=== PATIENT | female | born 1960 | race Caucasian/White ===

== ENCOUNTER → 2021-03-31 08:01 | Outpatient (CLI) | payer BC, SELFPAY ==
--- NOTE | 2021-03-31 08:10 | CT_ITS ---
STUDY: CT MAXILLOFACIAL SINUSES REASON FOR EXAM: Female, 60 years old. SINUSITIS RADIATION DOSAGE (If Supplied By Facility): CTDIvol = ( 33.06 ) mGy, DLP = ( 776.00 ) mGycm TECHNIQUE: The patient was scanned in a multi detector CT scanner. High resolution axial imaging was performed without the administration of intravenous contrast material. Sagittal and coronal images were reconstructed. Individualized dose optimization techniques were used for this CT. COMPARISON: None. FINDINGS: FRONTAL SINUSES: Mucosal thickening of the right frontal sinus. ETHMOIDAL SINUSES: Partial opacification of the ethmoid sinuses bilaterally. MAXILLARY SINUSES: Minimal mucosal thickening along the inferior aspect of the right maxillary sinus. SPHENOIDAL SINUSES: Opacification of the left sphenoid sinus. Mucosal thickening along the anterior aspect of the right sphenoid sinus. There is patency of the bilateral maxillary infundibuli with normal uncinate processes, ethmoid bullae, and hiatus semilunaris. Normal bilateral middle turbinates. Normal bilateral inferior turbinates. Normal midline nasal septum. There is patency of the bilateral nasal airways. The visualized osseous structures are normal. The visualized bilateral orbital contents are normal. CT/Sinus/Facial Bone IMPRESSION: Pansinusitis. Electronically Signed: Kevyn Lopez MD at 8:51 EST , Service support ,
== END ==
PROVIDERS: PCP Family Medicine; Referring Provider Otolaryngology; Visit Provider Otolaryngology
DX: J32.8 Other chronic sinusitis (principal)
CPT/HCPCS: 70486

== ENCOUNTER → 2021-04-16 10:35 | Outpatient (CLI) | payer BC, SELFPAY ==
[2021-04-16 12:04] LABS: Absolute Lymphocyte Count 1.37 X10^3/uL (0.83-4.51); Absolute Neutrophil Count 3.4 X10^3/uL (2.0-7.7); Basophil# 0.05 X10^3/uL; Basophil% 0.9 % (0-1); Eosinophil# 0.14 X10^3/uL; Eosinophils% 2.5 % (0-5); Hematocrit 43.2 % (37-47); Hemoglobin 13.7 g/dL (12.0-15.0); Lymphocyte # 1.37 X10^3/ul (0.83-4.51); Mean Corp Hgb Conc 31.7 g/dL (32-36); Mean Corpuscular Hgb 27.2 pg (27.0-32.0); Mean Corpuscular Volume 85.9 fL (81-99); Mean Platelet Vol. 10.9 fl (6.2-12.0); Monocyte% 12.3 % (0-10); NRBC Flagged by Analyzer 0 % (0-5); Neutrophil # 3.44 X10^3/uL (2.7-7.7); Neutrophil % 60.1 % (47-70); Platelet Count 306 K/mm3 (150-450); RBC Distribution Width CV 13.6 % (11.6-14.6); RBC Distribution Width SD 42.5 fl (35.1-43.9); Red Blood Count 5.03 M/mm3 (4.2-5.4); White Blood Count 5.7 K/mm3 (4.4-11.0)
[2021-04-16 12:44] LABS: ALB/GLOB Ratio 0.9 RATIO (0.9-2.4); AST(SGOT) 27 U/L (15-37); Alanine Aminotransfer ALT/SGPT 30 U/L (13-56); Albumin, Serum 3.5 g/dL (3.2-5.0); Alkaline Phosphatase 104 U/L (45-117); Anion Gap 7 (5-15); BUN 18 mg/dL (7-18); BUN/Creat Ratio 17.8 RATIO (10-20); Calcium,Total 9.3 mg/dL (8.5-10.1); Chloride 106 mmol/L (98-107); Creatinine, Serum 1.01 mg/dL (0.55-1.02); EST Glomerular Filtration Rate 59 mL/min (>60); Est Glom Filt Rate - Afr Amer 71 mL/min (>60); Globulin 3.7 g/dL (2.2-4.2); Glucose 68 mg/dL (74-106); Potassium 4.5 mmol/L (3.5-5.1); Protein, Total 7.2 g/dL (6.4-8.2); Sodium Level 141 mmol/L (136-145)
== END ==
PROVIDERS: PCP Family Medicine; Referring Provider Family Medicine; Visit Provider Family Medicine
DX: Z01.818 Encounter for other preprocedural examination (principal)
CPT/HCPCS: 36415; 80053; 85025

== ENCOUNTER 2021-04-23 05:52 | Day surgery (SDC) | payer BC, SELFPAY ==
[2021-04-23] VITALS (8 sets, daily range): BP systolic 106–128; BP diastolic 60–78; PULSE 65–80; RESP 12–16; TEMP 36.1–36.6; O2SAT 94–99; BMI 25.3
[2021-04-23 06:36] LABS: Prothrombin Time Fingerstick 12.3 SEC (11.9-14.4)
[2021-04-23] MEDS: Lactated Ringers 1,000 ML 15 ML IV (06:50)
[2021-04-23] MEDS: Cefazolin 2 GM in 0.9% Normal Saline 100 ML IV (07:27)
--- NOTE | 2021-04-23 07:30 | BON_PTH ---
PATIENT: CHRISTY JAIN LOC: [facility] [place] U#:[id number] AGE/SX: 60/F ROOM: RE04/23/[address]: Dr. Virgilio Villarreal DPM : 1960 BED: DIS: 04/23/2021 SPEC #: [id number] RECD: 04/23/21 12:27 STATUS: FRANCOIS YUE #: [id number] ROB: 04/23/21 07:[address]: Virgilio Villarreal DEPT: SURGICAL PATHOLOGY RECD BY: Alicia Guerrero ENTERED: 04/23/21 12:37 SP TYPE: Bone OTHR DR: Dr. Selena Rosales, DO Tissues: Toe, NOS Procedures: Decalcification bone/plaque Surgery Specimen Level IV HEADER OPERATION: First metatarsal cuneiform joint fusion lapidus bunionectomy PRE-OP DIAGNOSIS: Left hallux valgus bunion; craig second left toe TISSUE SUBMITTED: Craig second left toe MICROSCOPIC DIAGNOSIS Hammertoe deformity of left toe, bunionectomy: Fragments of osseocartilaginous tissue consistent with bony deformity. AM:arik 04/28/2021 MICROSCOPIC DESCRIPTION Slides are reviewed. GROSS DESCRIPTION Received in fixative is one container labeled with the patient's name and designated maxwelle second left toe. The specimen consists of two pieces of bone measuring 1.2 x 0.5 x 0.5 cm and 0.7 x 0.5 x 0.4 cm. The entire specimen is submitted in one cassette after decalcification. / ALEIDA:arik 04/23/21 TC:5 CPT: 53957, 02484
--- NOTE | 2021-04-23 07:30 | RAD_ITS ---
STUDY: X-RAY - LEFT FOOT CLINICAL: Intraoperative fluoroscopy for arthroplasty of the second digit, bunionectomy and first metatarsal cuneiform fusion. TECHNIQUE: 2 intraoperative images of the foot. COMPARISON: None. FINDINGS: There is resection arthroplasty of the second proximal interphalangeal joint with an orthopedic pin transfixing the phalanges of the second digit. 194 seconds of fluoroscopy time was used. Electronically Signed: Trent Delgado MD at 13:33 EST Tel , Service support , RAD/Foot min 3 Views
[2021-04-23] MEDS: Bupivacaine Mpf 0.5% 30 ML VIAL (07:42)
--- NOTE | 2021-04-23 10:06 | RAD_ITS ---
STUDY: X-RAY - LEFT FOOT CLINICAL: Postoperative evaluation of left second digit arthroplasty. TECHNIQUE: 3 view(s) of the foot. COMPARISON: Intraoperative images obtained earlier the same day and radiographs of the left ankle 03/23/2015. FINDINGS: There is a plantar calcaneal enthesophyte. There is arthrodesis of the first tarsometatarsal articulation with orthopedic hardware. Normal metatarsi. There is moderate joint space narrowing of the metatarsophalangeal joint of the great toe. Normal tibial and fibular sesamoid bones. Normal interphalangeal joint of the great toe. Normal phalanges of the great toe. Normal second through fifth metatarsophalangeal joints. There is resection arthroplasty of the second proximal interphalangeal joint with an orthopedic pin transfixing the second digit phalanges. There is minimal postoperative soft tissue gas. RAD/Foot min 3 Views IMPRESSION: Uncomplicated resection arthroplasty of the second proximal interphalangeal joint. Arthrosis of the first metatarsophalangeal joint. Arthrodesis of the first tarsometatarsal articulation. Plantar calcaneal enthesophyte. Electronically Signed: Trent Delgado MD at 12:13 EST Tel , Service support ,
--- NOTE | 2021-04-23 10:09 | DCINST_ITS ---
Discharge Instructions Diet Discharge Diet: Light diet - advance as tolerated Activity Discharge Activity: Use Walker and Use Crutches Weight Bearing Status: No weight bearing (No weightbearing on left foot) Keep extremity elevated above heart level: Left Leg Additional Activity Instructions:: Keep left foot elevated with pillows for at least 50 minutes of every hour Dressing / Incision Call your doctor if your incision/area has: Continuous Slow Oozing, Increased Pain/ Swelling, Increased Redness and Foul Smelling Discharge Call your doctor if you observe: Fever of 101 or Higher, Shortness of breath, Chest pain, Increased palpitations (irregular heartbeat), Calf discomfort and Uncontrolled pain Change Dressing in: do not change dressing Remove Dressing in: leave in place till F/U Cleanse incision/area with: Do not get Incision Wet and Keep Dressing Clean & Dry Follow Up Care Please Follow Up With: Virgilio Villarreal DPM When: Follow up with Dr. Villarreal at the [facility] next week, sooner if needed. Office number: [phone] Dr. Villarreal's pager/cell: [phone] Test Results: Test results from this visit will be discussed in further detail at your follow-up appointment, if applicable. Discharge Plan Admission Attending Provider: Virgilio Villarreal Primary Care Provider: Selena Rosales Discharge Orders/Prescriptions Prescriptions: New oxycodone-acetaminophen [Percocet] 5-325 mg tablet 1 - 2 tab PO Q6H PRN (Reason: pain) 4 Days Qty: 24 RF: 0 No Action warfarin 2 mg Tablet 2 mg PO SUMOWEFR RF: 0 warfarin 4 mg Tablet 4 mg PO TUTHSA RF: 0 enoxaparin [Lovenox] 80 mg/0.8 mL Syringe 70 mg SUBCUT BID RF: 0 Referrals / Follow Up: Selena Rosales DO [Primary Care Provider] - Disposition Disposition (needs filled in before D/C Order can be placed): Home, Self Care
--- NOTE | 2021-04-23 10:11 | OP.PCM_ITS ---
Report of Operation Date of Procedure: 04/23/21 Pre-Operative Diagnosis: Hallux Valgus Bunion, left foot Hammer toe 2nd toe left foot Post-Operative Diagnosis: Same Surgery/Procedure Performed:: 1st tarsometatarsal lapidus arthrodesis/fusion bunionectomy left foot Arthroplasty left 2nd toe, left foot Surgeon: Virgilio Villarreal licensed prosthetist/orthotist: Dr. Escalante Type of Anesthesia: General and Local Specimen's removed: Bone from left 2nd toe sent to pathology Estimated Blood Loss (mL): 10mL Description of Procedure: Indications: This is a 60 year old female with history of chronic symptomatic left hallux valgus bunion pain, as well as 2nd toe pain due to significant hammer toe deformity. She elected to under go surgical intervention due to condition, symptoms, and problems with shoegear and activity. This procedure is - 1st metatarsal cuneiform lapidus arthrodesis bunionectomy, as well as correction of 2nd digit hammer toe. This was discussed with her in great detail, reviewed the procedures, as well as the rationale of the procedures with her in great detail. We discussed and reviewed the possible benefits vs risks/potential complications. The estimated healing/recovery time and protocol were reviewed with her in detail. Reviewed the goals and the expectations. She expressed understanding and agreement and elected to proceed forward with surgical intervention as noted above. The consent forms were reviewed and they were freely signed. All questions were answered. No guarantees were given or implied. She was cleared from medical standpoint to proceed with surgery. Operative Procedure: The patient was brought back into the operating room and was placed on the operating table in the supine position. Patient was carefully secured to the operating room table with a safety belt around her waist. A time out was performed and the patient was properly identified and the surgical plan was confirmed. The patient received IV antibiotic prophylaxis - 2g of Ancef. The patient received anesthesia per the anesthesiologist. After the skin was cleansed with 70% Isopropyl alcohol 20mL of 0.5% Bupivacaine plain was given as a 1st and 2nd ray block. A well padded pneumatic tourniquet was applied around the patient's left ankle. The left foot was scrubbed, prepped, and draped in the usual aseptic fashion. Attention was directed to the left foot, there was noted to be significant hallux valgus bunion w/ instability of the 1st ray, with 1st toe deviated into 2nd toe, and significant contracture of 2nd toe. The left foot was elevated for 3 minutes and the ankle pneumatic tourniquet was inflated to 250mmHg. A linear longitudinal skin incision was medially along the medial 1st metatarsal cuneiform joint as well as overlying the 1st metatarsal phalangeal joint. This was done using a 15 blade. Careful dissection was completed down to the capsule of the 1st metatarsal cuneiform joint, and it was incised using a 15 blade and partially reflected exposing the joint surfaces. All cartilage from the 1st metatarsal cuneiform joint surfaces (posterior aspect of the base of the 1st metatarsal and the anterior aspect of the medial cuneiform) were debrided away and was removed down to bleeding bone. This was done with a curette as well as a powered rasp and saw, being sure not to cause osteonecrosis. The site was flushed out with copious amounts of normal saline solution. The surfaces were fenestrated using a powered drill to aid fusion. The 1st metatarsal was reduced into normal position. The site was fixated use rigid open reduction internal fixation, using 1 Arthrex plantar plate, using a total of 4 locking screws and 1 nonlocking compression screw across the fusion site. An additional 2 x 3.5mm FT Arthrex threaded screw was placed across the fusion site for extra stability to aid fusion, and 1 x 3.5mm FT Arthrex screw from the 1st and 2nd cuneiforms for intercuneiform instability which was noted to be present when stressing site under intra operative fluoroscopy. Internal fixation was done using rigid open reduction internal fixation technique. There was very good compression and bone to bone contract with the prepped fusion site, in good alignment. The fusion site was rigid and very stable. This was checked and confirmed with intraoperative fluoroscopy. There was noted to be significant contracture of the lateral 1st metatarsal phalangeal joint as well as the adductor hallucis tendon which was preventing proper complete reduction of the deformity. Therefore a small skin incision was overlying the dorsal lateral 1st metatarsal phalangeal joint. Dissection was completed down to the lateral capsule and adductor hallucis tendon which were released using a 15 blade. There was was now normal range of motion to the 1st metatarsal phalangeal joint. There was smooth normal gliding range of motion of the 1st metatarsal phalangeal joint at this time with normal alignment. The joint was in good alignment. The surgical site was flushed out with copious amounts of normal saline solution. Tissues were healthy and viable at this time. The subcutaneous tissue layers were reapproximated using 3-0 Vicryl and the skin was reapproximated using 4-0 Monocryl. Cavilon was painted to the edges of the sutured skin incision and steristrips were applied across the sutured skin incision. Attention was directed to the 2nd toe on the right foot, it was significantly contracted/hammered. A dorsal linear longitudinal incision was made over the proximal interphalangeal joint (PIPJ) of the toe. An incision was made longitudinally to the extensor digitorum longus tendon and split down the middle, leaving the ends intact, this was done with a 15 blade. The dorsal PIPJ joint capsule was incised with a 15 blade. The head of the proximal phalanx was resected using a powered sagittal saw. The site was flushed out with copious amounts of normal saline solution. A 0.062in Kwire was placed through the phalanges of the toe holding the toe in rectus position however toe. The 2nd toe was now in rectus position at this time in all planes. This was confirmed with intra operative fluoroscopy. The site was again flushed out with copious amounts of normal saline solution. The skin was reapproximated using 3-0 Monocryl. The resected bone from the 2nd hammer toe was sent to pathology as specimen. 20 mL of a 0.5% Bupivacaine plain was given as a lock block around the surgical site for further pain control. The pneumatic tourniquet was deflated at 120 minutes, there was immediate return of warmth and perfusion to the foot and to all toes on the foot with normal temperature gradient and CFT < 2 seconds to all toes once the tourniquet was deflated. All hemostasis was achieved prior to closure. A dressing was applied which consisted of Betadine soaked adaptic, 4x4 gauze, Kerlix, and an joan bandage. Of note, all vital structures including all vital neurovascular and tendon structures were properly identified, protected, and retracted as necessary throughout the above operative procedures. The anterior tibial tendon was left intact. The patient tolerated the above operative procedures well at the anesthesia well with no complication. The patient was transported from the operating room to the recovery room with vital signs stable and in good condition. Post operative orders were placed. Post operative instructions were reviewed with his parents who was with her. No weightbearing left foot, keep foot elevated for at least 50 minutes of every hour, keep dressing and splint clean, dry and intact. Prescription for Percocet for pain control was prescribed. Post operative xrays were obtained in the recovery room (DP, Oblique, and lateral foot) - there was again noted to be 1st metatarsal cuneiform arthrodesis bunionectomy in good position, with joint surfaces in good alignment and good bone to bone contract with intact hardware; no acute problems or complications seen. 2nd toe in rectus position w/ no evidence of complication. Patient to follow up with me in office within 1 week, sooner if needed. Grafts/Implants Used: Arthrex lapidus plantar plate and screws, FT compression screws, kwlyn Complications None
== END 2021-04-23 12:46 | disposition home or self-care (01) ==
LOC: SDC 05:53 → AC 05:54
PROVIDERS: PCP Family Medicine; Referring Provider Podiatrist; Visit Provider Podiatrist
PROC: (CPT 28292; principal; 2021-04-23 07:15)
DX: M20.12 Hallux valgus (acquired), left foot (principal); M21.612 Bunion of left foot; M20.42 Other hammer toe(s) (acquired), left foot; Z79.899 Other long term (current) drug therapy; Z79.01 Long term (current) use of anticoagulants
CPT/HCPCS: 28285; 28297; 36416; 73630; 76000; 85610; 88305; 88311; C1713; J7120; J2405

== ENCOUNTER → 2022-09-23 | Outpatient (CLI) | payer OTHER, SELFPAY ==
--- NOTE | 2022-09-23 13:54 | CT_ITS ---
STUDY: CT MAXILLOFACIAL SINUSES REASON FOR EXAM: Female, 61 years old. CHRONIC SINUSITIS. Posterior nasal drip. History of prior bilateral sentinel plasty. RADIATION DOSAGE (If Supplied By Facility): CTDIvol = ( 33.06 ) mGy, DLP = ( 780.13 ) mGycm TECHNIQUE: The patient was scanned in a multi detector CT scanner. High resolution axial imaging was performed without the administration of intravenous contrast material. Sagittal and coronal images were reconstructed. Individualized dose optimization techniques were used for this CT. COMPARISON: Comparison is made with prior study dated March 31, 2021. FINDINGS: FRONTAL SINUSES: Normal aeration, without mucosal inflammatory disease. ETHMOIDAL SINUSES: Minimal degree of mucosal thickening of the ethmoid sinuses bilaterally. MAXILLARY SINUSES: Normal aeration, without mucosal inflammatory disease. SPHENOIDAL SINUSES: Normal aeration, without mucosal inflammatory disease. There is patency of the bilateral maxillary infundibuli with normal uncinate processes, ethmoid bullae, and hiatus semilunaris. Normal bilateral middle turbinates. Normal bilateral inferior turbinates. Normal midline nasal septum. There is patency of the bilateral nasal airways. The visualized osseous structures are normal. The visualized bilateral orbital contents are normal. CT/Sinus/Facial Bone IMPRESSION: Minimal residual mucosal thickening of the ethmoid sinuses. Electronically Signed: Kevyn Lopez MD at 14:56 EDT ,
== END | disposition home or self-care (01) ==
LOC: CT 13:54
PROVIDERS: PCP Family Medicine; Referring Provider Otolaryngology; Visit Provider Otolaryngology
DX: J32.8 Other chronic sinusitis (principal)
CPT/HCPCS: 70486